=== PATIENT | female | born 1990 | race Caucasian/White ===

== ENCOUNTER → 2017-09-20 | Outpatient (CLI) | payer OTHER | LOC: FIMAGING 10:51 | PROVIDERS: ATTEND Family Medicine | DX: Z13.828 Encounter for screening for other musculoskeletal disorder (principal); M25.562 Pain in left knee ==

== ENCOUNTER → 2017-10-09 | Outpatient (CLI) | payer OTHER | LOC: FIMAGING 09:00 | PROVIDERS: ATTEND Family Medicine | DX: M25.562 Pain in left knee (principal); R60.9 Edema, unspecified; M23.602 Other spontaneous disruption of unspecified ligament of left knee; W19.XXXD Unspecified fall, subsequent encounter ==